=== PATIENT | female | born 1950 | race Caucasian/White ===

== ENCOUNTER 2017-07-09 14:19 | Outpatient (CLI) | payer BC | END 2017-07-09 14:20 | disposition home or self-care (01) | LOC: BICMAMMO 14:19 | PROVIDERS: ATTEND Internal Medicine | DX: M81.0 Age-related osteoporosis without current pathological fracture (principal); M85.88 Other specified disorders of bone density and structure, other site | CPT/HCPCS: 77080 ==

== ENCOUNTER 2017-12-27 11:22 | Observation (INO) | payer BC ==
[~2017-12-27 11:22] MED LIST: ISOVUE-370 76%-LOCM 1 ML ONE
[2017-12-27 11:55] LABS: #Eosinphils 0.2 thou/uL (0.0-0.7); #Lymphocytes 1.2 thou/uL (1.20-3.40); #Monocytes 0.4 thou/uL (0.11-0.59); #Neutrophils 2.4 thou/uL (1.40-6.50); %Basophils 0.8 % (0.0-1.0); %Eosinophils 4.1 % (0.0-10.0); %Lymphocytes 28.2 % (21.0-51.0); %Monocytes 9.8 % (0.0-10.0); %Neutrophils 57.1 % (42.0-75.0); Hemoglobin 13.8 g/dL (12.0-16.0); Mean Corpuscular HGB CONC 34.3 g/dL (32.0-36.0); Mean Corpuscular Hemoglobin 30.6 pg (27.0-31.0); Mean Corpuscular Volume 89.3 fL (78.0-98.0); Mean Platelet Volume 7.3 fL (7.4-10.4); Platelet Count 221 thou/uL (130-400); RBC Distribution Width 11.7 % (11.5-14.5); Red Blood Cell (RBC) Count 4.52 mill/uL (4.20-5.40); White Blood Cell (WBC) Count 4.2 thou/uL (4.8-10.8)
[2017-12-27 12:16] LABS: ALT (SGPT) 27 U/L (8-55); AST (SGOT) 18 U/L (5-34); Albumin 4.3 g/dL (3.4-4.8); Alkaline Phosphatase 66 U/L (40-150); Anion Gap 12 mmol/L (10-20); BUN (Urea Nitrogen) 19 mg/dL (9.8-20.1); Bilirubin, Total 0.4 mg/dL (0.2-1.2); CK (CPK) 99 U/L (29-168); Calc. Creatinine Clearance 0 mL/min (70-130); Calcium 9.3 mg/dL (7.8-10.44); Carbon Dioxide 29 mmol/L (23-31); Chloride 103 mmol/L (98-107); Estimated GFR-MDRD 81; Globulin 2.4 g/dL (2.4-3.5); Glucose 119 mg/dL (80-115); Lipase 33 U/L (8-78); Protein, Total 6.7 g/dL (6.0-8.3); Sodium 140 mmol/L (136-145)
[2017-12-27 12:19] LABS: INR-International Normal Ratio 0.9; PTT 27.4 SEC (22.9-36.1); Prothrombin Time 12.2 SEC (12.0-14.7)
[2017-12-27 12:20] LABS: CKMB 1.8 ng/mL (0-6.6); Troponin I Less than 0.010 ng/mL (< 0.028)
--- NOTE | 2017-12-27 12:49 | RAD ---
SINGLE VIEW CHEST: Date: 12/27/17 HISTORY: Dizziness and near syncope. Diaphoresis. FINDINGS: Single view of the chest shows a normal sized cardiomediastinal silhouette. There is no evidence of c onsolidation, mass, or pleural effusion. Degenerative changes are seen in the spine. IMPRESSION: No evidence of acute cardiopulmonary disease. POS: [facility]
--- NOTE | 2017-12-27 12:51 | CT ---
CT OF THE BRAIN WITHOUT CONTRAST: Date: 12/27/17 COMPARISON: None. HISTORY: Dizziness and near syncope. Stroke protocol. TECHNIQUE: Multiple contiguous axial images were obtained in a CT of the brain without contrast. FINDINGS: There are scattered hypodensities in the subcortical and periventricular white matter, likely seconda ry to small vessel ischemic disease. No large confluent infarction is seen. There is no evidence of h ydrocephalus, intracranial hemorrhage, or extra-axial fluid collection. The calvarium and overlying soft tissues are unremarkable. The visualized paranasal sinuses and masto id air cells are well aerated. 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 IMPRESSION: 1. No evidence of acute intracranial abnormality. 2. Small vessel ischemic disease. Dr. Dos Santos notified of the findings at 1222 hours on 12/27/17. CODE CR. POS: [facility]
[2017-12-27] MEDS ORDERED: Diazepam 5 MG TAB ONE (13:06)
--- NOTE | 2017-12-27 13:06 | CT ---
CTA OF HEAD AND CTA OF NECK WITH CONTRAST: Date: 12/27/17 COMPARISON: None. HISTORY: Stroke alert with near syncope and dizziness. TECHNIQUE: 1. Multiple contiguous axial images were obtained in a CTA of the neck with contrast. 3D sagittal an d coronal MIP reformats were performed. 2. Multiple contiguous axial images were obtained in a CTA of the head with contrast. 3D sagittal an d coronal MIP reformats were performed. FINDINGS: CTA NECK: Aortic arch is normal in appearance. The subclavian arteries and common carotid arteries are unremark able without significant atherosclerotic disease. The common carotid arteries bifurcate in a normal appearing internal and external carotid arteries. N o significant atherosclerotic disease is seen in the common carotid arteries, internal carotid arteri es, or external carotid arteries per NASCET criteria. Both vertebral arteries form a normal appearing basilar artery. No significant atherosclerotic diseas e of the vertebral arteries is seen. No mucosal abnormality is seen in the neck. No cervical adenopathy is seen. Degenerative changes are seen in the spine. ' CTA HEAD: The bilateral intracranial internal carotid arteries are normal in caliber. These branch is normal ap pearing anterior and middle cerebral arteries. There is no evidence of aneurysmal dilatation, focal s tenosis, or occlusion in the anterior circulation. Both vertebral arteries form a normal appearing basilar artery. The posterior cerebral arteries and c erebellar arteries are patent. There is a prominent right posterior communicating artery. There is no evidence of aneurysmal dilatation, focal stenosis, or occlusion in the posterior circulation. IMPRESSION: 1. Normal CTA neck. 2. Normal CTA head. Dr. Dos Santos notified of findings at 1238 hours on 12/27/17. CODE CR. POS: [facility]
[2017-12-27 14:37] LABS: Bilirubin Negative (Negative); Blood, Urine Negative (Negative); Clarity CLEAR (Clear); Glucose, Urine (Dipstick) Negative (Negative); Leukocyte Negative (Negative); Nitrite Negative (Negative); Protein, Urine (Dipstick) Negative (Neg-Trace); Specific Gravity, Urine 1.019 (1.002-1.036); Urobilinogen 0.2 mg/dL (0.2-1.0)
[2017-12-27] MEDS ORDERED: Acetaminophen 325 MG TAB PO PRN (14:40)
[2017-12-27 15:45] VITALS: BMI 20.7
[2017-12-27] MEDS ORDERED: Zolpidem Tartrate 5 MG TAB PO PRN (15:52)
[2017-12-27] MEDS: Heparin 5,000 UNITS/ML VIAL SC SCH ×2 (17:21→20:53)
--- NOTE | 2017-12-27 18:29 | HP ---
CHIEF COMPLAINT: Dizziness, lightheadedness. HISTORY OF PRESENT ILLNESS: The patient is a 67-year-old female, who initially [facility] for [facility]. The patient that she yesterday was out with her daughter in the pool; however, s he did not feel very dehydrated; however, she stayed up all night baking a cake for the daughter's fidel yfriend for a birthday republican, did not go to bed until 3:00 a.m. The patient stated that when she wok e up this morning in bed, she had no issues; however, when she got out of bed to start getting up, sh james felt very unsteady and then also felt very nauseated, very diaphoretic and later on had a loose sto ol x1. The patient also states that one of her family members who is very close to her is undergoing a very traumatic divorce and who only talks with the patient. The patient does have a history of an xiety and she is on medications for that. PAST MEDICAL HISTORY: Anxiety, mitral valve prolapse, OCD, osteoporosis. FAMILY HISTORY: History of breast cancer. Sister had breast cancer, melanoma, multiple myeloma. Br other had kidney cancer. MEDICATIONS: She takes are as of the following: She takes aspirin 81 mg daily. She takes clonazepa m 0.25 mg b.i.d. She takes Pristiq 100 mg daily, multivitamin 1 p.o. daily, rosuvastatin 5 mg daily, Ambien 5 mg daily. ALLERGIES: The patient has no known drug allergies. PAST SURGICAL HISTORY: She has had a bladder lift. She has had some venous surgeries in her lower e xtremities and has had a mole removed which had some atypia. REVIEW OF SYSTEMS: All negative except for the ones mentioned above in the HPI. PHYSICAL EXAMINATION: VITAL SIGNS: She is 97.3, 69, 16, 162/82. GENERAL: She is awake, alert, oriented x3, does not appear in any distress. CARDIOVASCULAR: S1, S2 present. No murmurs, rubs or gallops. HEENT: Normocephalic, atraumatic. NECK: No lymphadenopathy noted. ABDOMEN: Soft, nontender. Bowel sounds are present x2. EXTREMITIES: No edema. Pedal pulses are present x2. NEUROLOGIC: Neurological kramer, no focal deficits noted. SKIN: No cuts or lesions noted. LABORATORY DATA AND IMAGING: Laboratory results are as of the following: WBC of 4.2, hemoglobin of 13.8, hematocrit of 40.4, platelets of 221. Chemistry: Sodium of 140, potassium 4.0, BUN of 19, cre atinine 0.92. Her troponin x1 was negative. Her lipase was normal. TSH is pending. EKG, normal si nus rhythm. She did have a CT head, which was essentially normal. She also had a CTA, which was nor mal. ASSESSMENT AND PLAN: The patient is a very pleasant 67-year-old female, who presents to the hospital with complaints of dizziness. 1. Dizziness. This could be secondary to mild dehydration versus an anxiety attack. We will go ahe ad and get an MRI brain. We will also trend the troponins x2 more additional. Also monitor her on t elemetry to see if there is any arrhythmia. 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 If all her tests are negative, I will not hesitate to discharge her. 2. History of anxiety. We will continue to monitor and continue her home medications. She was aske d to try and see if she can relax a little bit today and also we will check a TSH, just for completio n sake. 3. Deep venous thrombosis prophylaxis. We will put the patient on subcu heparin or sequential compr ession devices.
[2017-12-27] MEDS: Docusate 100 MG CAP PO SCH (20:52)
[2017-12-27] MEDS: clonazePAM 0.5 MG TAB PO PRN (20:53)
[2017-12-28 05:53] LABS: #Eosinphils 0.2 thou/uL (0.0-0.7); #Lymphocytes 1.6 thou/uL (1.20-3.40); #Monocytes 0.6 thou/uL (0.11-0.59); #Neutrophils 3.4 thou/uL (1.40-6.50); %Basophils 0.5 % (0.0-1.0); %Lymphocytes 27.6 % (21.0-51.0); %Monocytes 10.6 % (0.0-10.0); %Neutrophils 58.3 % (42.0-75.0); Hemoglobin 13.1 g/dL (12.0-16.0); Mean Corpuscular HGB CONC 33.9 g/dL (32.0-36.0); Mean Corpuscular Hemoglobin 30.5 pg (27.0-31.0); Mean Corpuscular Volume 90.1 fL (78.0-98.0); Mean Platelet Volume 7.9 fL (7.4-10.4); Platelet Count 200 thou/uL (130-400); RBC Distribution Width 11.9 % (11.5-14.5); Red Blood Cell (RBC) Count 4.28 mill/uL (4.20-5.40); White Blood Cell (WBC) Count 5.8 thou/uL (4.8-10.8)
[2017-12-28 06:09] LABS: Anion Gap 13 mmol/L (10-20); BUN (Urea Nitrogen) 13 mg/dL (9.8-20.1); Calc. Creatinine Clearance 83 mL/min (70-130); Calcium 9.3 mg/dL (7.8-10.44); Carbon Dioxide 26 mmol/L (23-31); Chloride 107 mmol/L (98-107); Estimated GFR-MDRD 89; Glucose 100 mg/dL (80-115); Potassium 4.1 mmol/L (3.5-5.1); Sodium 142 mmol/L (136-145)
[2017-12-28] MEDS ORDERED: Venlafaxine HCl XR 150 MG CAP PO SCH (09:00)
[2017-12-28] MEDS ORDERED: Multivit, Therapeutic 1 TAB PO SCH (09:00)
[2017-12-28] MEDS ORDERED: Rosuvastatin 5 MG TAB PO SCH (09:00)
[2017-12-28] MEDS ORDERED: Fish Oil 1,000 MG CAP PO SCH (09:00)
[2017-12-28] MEDS ORDERED: Aspirin 81 mg Enteric Coated Tablet PO SCH (09:00)
[2017-12-28] MEDS: Docusate 100 MG CAP PO SCH (10:05)
[2017-12-28] MEDS: Heparin 5,000 UNITS/ML VIAL SC SCH (10:06)
[2017-12-28] MEDS: clonazePAM 0.5 MG TAB PO PRN (10:20)
--- NOTE | 2017-12-28 10:44 | MRI ---
MRI OF BRAIN WITHOUT CONTRAST: Date: 12/28/17 COMPARISON: None. HISTORY: Dizziness and unsteady gait. TECHNIQUE: Multiplanar, multisequence MR images were obtained of the brain without contrast. FINDINGS: There are a few scattered foci of high FLAIR signal in the subcortical and periventricular white issac er, likely secondary to small vessel ischemic disease. No restricted diffusion is seen to suggest an acute infarction. There is no evidence of hydrocephalus, intracranial hemorrhage, or extra-axial flui d collection. The expected flow-voids are present. The corpus callosum, pituitary, and craniocervical junction are unremarkable. The calvarium and overlying soft tissues are unremarkable. The visualized paranasal sinuses and masto id air cells are well aerated. IMPRESSION: 1. No evidence of acute intracranial abnormality. 2. Small vessel ischemic disease. POS: [facility]
[2017-12-28 11:49] VITALS: BP 141/101; TEMP 98.8
[2017-12-28] MEDS ORDERED: Amlodipine 5 MG TAB PO SCH (14:00)
--- NOTE | 2017-12-29 01:15 | DIS ---
DATE OF ADMISSION: 12/27/2017 DATE OF DISCHARGE: 12/28/2017 DISCHARGE DIAGNOSES: As of the followin. Dizziness. 2. History of anxiety. 3. Possible hypertension. HOSPITAL COURSE: The patient is a very pleasant 67-year-old female who initially presented to the [facility] with complaints of unsteadiness and dizziness. She was evaluated in the ER and underwent a CT A, which did not indicate any acute abnormalities. She also underwent a CT brain, which essentially was normal. Her thyroid function also was checked, which was normal. She had no significant abnorma lities in her labs. Patient then underwent an MRI brain, which was also negative. The patient, hitesh morales, was found to be a little bit hypertensive. Patient states that normally she runs low in the low teens over 60s; however, throughout the hospital stay, she was in the 140s/80s. At this time, the p atient was started on Norvasc 5 mg and I have recommended the patient to follow up with her primary n ext week; however, in the meantime to continue checking her blood pressure. I am not sure if this bl ood pressure elevation is secondary to her being in the hospital versus a newly diagnosing of high bl ood pressure. Patient stated her normal blood pressure was about 2 weeks ago which was her baseline in the one teens over 60. If she continues to have high blood pressure, her PCP will need to do a hy pertensive workup as an outpatient. The patient and family understood this. HOME MEDICATIONS: The patient will take her home vitamins. Also continue aspirin 81 mg daily, Ambie n 5 mg at bedtime p.r.n., Crestor 5 mg daily, clonazepam 0.25 mg b.i.d., Pristiq 100 mg daily, amlodi pine 5 mg p.o. daily, this is new. She was advised that if her blood pressure does go much more high er, she can take an additional 5 mg. However, if anything else changes, she was asked to come into t he ER for further evaluation. She did have troponins checked x1, which was negative. PHYSICAL EXAMINATION: VITAL SIGNS: 98.8, 75, 16, 97% on room air, 152/86. GENERAL: She is awake, alert, oriented x3, does not appear in distress. CARDIOVASCULAR: S1, S2 present. No murmurs, rubs, or gallops. ABDOMEN: Soft, nontender. Bowel sounds are present x2. EXTREMITIES: No edema. Pedal pulses are present x2. DISCHARGE INSTRUCTIONS: Patient was asked to follow up with her PCP for her elevated blood pressure. In the meantime, she was asked to keep a diary of her blood pressure and if her blood pressure was very, very elevated, she was asked to come into the ER for further evaluation. However, I do believe that there is a component of anxiety in terms of her blood pressure; however, she was still asked to monitor her blood pressure.
[2017-12-29] MEDS ORDERED: Amlodipine 5 MG TAB PO SCH (09:00)
== END 2017-12-28 15:41 | disposition home or self-care (01) ==
LOC: ERS 11:22 → 2SE 15:08
PROVIDERS: ADMIT Internal Medicine; ATTEND Internal Medicine
DX: R42 Dizziness and giddiness (principal); F41.9 Anxiety disorder, unspecified; I34.1 Nonrheumatic mitral (valve) prolapse; F42.9 Obsessive-compulsive disorder, unspecified; M81.0 Age-related osteoporosis without current pathological fracture; Z79.82 Long term (current) use of aspirin; Z79.899 Other long term (current) drug therapy
CPT/HCPCS: 36415; 36416; 70450; 70496; 70498; 70551; 71045; 80048; 80053; 81003; 82553; 83690; 84443; 84484; 85025; 85610; 85730; 93005; 96360; G0378; J1644

== ENCOUNTER 2018-02-09 10:23 | Outpatient (CLI) | payer BC | END 2018-02-09 10:24 | disposition home or self-care (01) | LOC: BICMAMMO 10:23 | PROVIDERS: ATTEND Internal Medicine | DX: Z12.31 Encounter for screening mammogram for malignant neoplasm of breast (principal); Z80.3 Family history of malignant neoplasm of breast; Z80.8 Family history of malignant neoplasm of other organs or systems | CPT/HCPCS: 77063; 77067 ==

== ENCOUNTER 2019-02-10 15:05 | Outpatient (CLI) | payer BC ==
--- NOTE | 2019-02-10 15:41 | MMO ---
Bilateral MAMMO Bilat Screen [facility]. CLINICAL HISTORY: Patient is 68 years old and is seen for screening. The patient has the following family history of breast cancer: sister, at age 55. The patient has no personal history of cancer. VIEWS: The views performed were: bilateral craniocaudal with tomosynthesis and bilateral mediolateral oblique with tomosynthesis. FILMS COMPARED: The present examination has been compared to prior imaging studies performed at [facility] on 01/24/2015, 01/16/2016, 02/06/2017 and 02/09/2018. This study has been interpreted with the assistance of computer-aided detection. MAMMOGRAM FINDINGS: There are scattered fibroglandular densities. There are benign appearing calcifications seen in both breasts. There are no suspicious masses, suspicious calcifications, or new areas of architectural distortion. IMPRESSION: THERE IS NO MAMMOGRAPHIC EVIDENCE OF MALIGNANCY. A ROUTINE FOLLOW-UP MAMMOGRAM IN 1 YEAR IS RECOMMENDED. THE RESULTS OF THIS EXAM WERE SENT TO THE PATIENT. ACR BI-RADS Category 2 - Benign finding MAMMOGRAPHY NOTE: 1. A negative mammogram report should not delay a biopsy if a dominant of clinically suspicious mass is present. 2. Approximately 10% to 15% of breast cancers are not detected by mammography. 3. Adenosis and dense breasts may obscure an underlying neoplasm. Reported by: YOSVANY SHAH MD Electonically Signed: [id number]
== END 2019-02-10 15:06 | disposition home or self-care (01) ==
LOC: BICMAMMO 15:05
PROVIDERS: ATTEND Obstetrics & Gynecology
DX: Z12.31 Encounter for screening mammogram for malignant neoplasm of breast (principal); Z80.3 Family history of malignant neoplasm of breast
CPT/HCPCS: 77063; 77067

== ENCOUNTER 2023-07-25 12:17 | Emergency (ER) | payer BC, MEDICARE, SELFPAY ==
[2023-07-25 14:42] LABS: #Monocytes 0.6 thou/uL (0.11-0.59); #Neutrophils 5.6 thou/uL (1.40-6.50); %Basophils 0.4 % (0.0-1.0); %Eosinophils 0.6 % (0.0-10.0); %Monocytes 7.7 % (0.0-10.0); Hematocrit 40.9 % (36.0-47.0); Hemoglobin 13.4 g/dL (12.0-16.0); Mean Corpuscular HGB CONC 32.8 g/dL (32.0-36.0); Mean Corpuscular Hemoglobin 29.6 pg (27.0-31.0); Mean Corpuscular Volume 90.5 fl (78.0-98.0); Mean Platelet Volume 10.1 fL (7.4-10.4); Platelet Count 259 10x3/uL (130-400); RBC Distribution Width 13.7 % (11.5-14.5); Red Blood Cell (RBC) Count 4.52 mill/uL (4.20-5.40); White Blood Cell (WBC) Count 7.3 10x3/uL (4.8-10.8)
[2023-07-25] MEDS ORDERED: Meclizine HCl 25 MG TAB ONE (14:50)
[2023-07-25 14:58] LABS: PTT 31.2 sec (22.9-36.1); Prothrombin Time 12.8 sec (12.0-14.7)
[2023-07-25 14:59] LABS: D-Dimer Test 0.28 mcg/mL (0.27-0.43)
[2023-07-25 15:04] LABS: Bacteria/HPF None Seen HPF (None Seen); Bilirubin Negative (Negative); Blood, Urine Negative (Negative); CAUTI Indications for Culture Dysuria,urgency,freq; Clarity Clear (Clear); Glucose, Urine (Dipstick) Normal (Negative); Ketone, Urine Negative (Negative); Leukocyte Negative Leu/uL (Negative); Nitrite Negative (Negative); Protein, Urine (Dipstick) Negative (Neg-Trace); RBC/HPF 0-3 HPF (0-3); Specific Gravity, Urine 1.005 (1.002-1.036); Squamous Epithelial None Seen HPF (0-3); Urobilinogen Normal mg/dL (Less than 2); WBC/HPF 0-3 HPF (0-3)
[2023-07-25 15:06] LABS: Urine Culture Reflex No No
[2023-07-25 15:06] LABS: ALT (SGPT) 25 U/L (8-55); AST (SGOT) 21 U/L (5-34); Albumin 4.2 g/dL (3.4-4.8); Alkaline Phosphatase 64 U/L (40-110); Anion Gap 14 mmol/L (10-20); BUN (Urea Nitrogen) 13 mg/dL (9.8-20.1); Bilirubin, Total 0.7 mg/dL (0.2-1.2); Calc. Creatinine Clearance 0 mL/min (70-130); Calcium 9.3 mg/dL (7.8-10.44); Carbon Dioxide 26 mmol/L (23-31); Chloride 104 mmol/L (98-107); Estimated GFR 93; Globulin 2.6 g/dL (2.4-3.5); Glucose 95 mg/dL (83-110); Magnesium 2.1 mg/dL (1.6-2.6); Potassium 4.5 mmol/L (3.5-5.1); Protein, Total 6.8 g/dL (5.8-8.1); Sodium 139 mmol/L (136-145)
[2023-07-25 15:09] LABS: Troponin I Less than 0.010 ng/mL (< 0.028)
[2023-07-25] MEDS ORDERED: Acetaminophen 500 MG TAB ONE (16:14)
[2023-07-25] MEDS ORDERED: Ondansetron ODT 4 MG TAB ONE (16:15)
== END 2023-07-25 16:18 | disposition home or self-care (01) ==
LOC: ERS 12:17
DX: R42 Dizziness and giddiness (principal); R29.700 NIHSS score 0; I10 Essential (primary) hypertension
CPT/HCPCS: 36415; 70450; 71045; 80053; 81001; 83735; 83880; 84484; 85025; 85379; 85610; 85730; 93005; Q0162